=== PATIENT | male | born 1995 | race Caucasian/White ===

== ENCOUNTER 2018-05-06 20:30 | Inpatient (IN) ==
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
[2018-05-07] MEDS ORDERED: Aluminum/Magnesium/Simethacone Susp 30 ML UDC PO PRN (09:09)
[2018-05-07] MEDS ORDERED: Bisacodyl 10 MG Supp RECTAL PRN (09:09)
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
[2018-05-07] MEDS: Senna/Docusate Sodium 8.6/50 MG Tablet PO SCH (21:21)
[2018-05-07] MEDS: Methocarbamol 500 MG Tablet PO PRN (23:39)
[2018-05-08 07:39] LABS: Calcium 8.3 mg/dL (8.5-10.1); Carbon Dioxide 30.3 meq/L (21.0-32.0); Potassium 3.7 meq/L (3.5-5.1)
[2018-05-08 07:43] LABS: Chol/HDL Ratio 4.04 Ratio; HDL Cholesterol 31.9 mg/dL (40.0-60.0)
[2018-05-08] MEDS: Senna/Docusate Sodium 8.6/50 MG Tablet PO SCH ×2 (09:22→21:19)
[2018-05-08 09:41] LABS: Hemoglobin A1c 5.1 % (4.3-6.0)
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
[2018-05-08] MEDS: Methocarbamol 500 MG Tablet PO PRN (21:19)
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
[2018-05-09] MEDS: Senna/Docusate Sodium 8.6/50 MG Tablet PO SCH ×2 (09:41→21:03)
[2018-05-10] MEDS: Senna/Docusate Sodium 8.6/50 MG Tablet PO SCH ×2 (09:01→21:29)
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
[2018-05-11] MEDS: Senna/Docusate Sodium 8.6/50 MG Tablet PO SCH ×2 (09:30→20:59)
--- NOTE | 2018-05-11 15:00 | P.PNIM ---
Subjective Interval history: Follow up on patient with scrotal rash. Patient seen and examined. Patient is concerned that he is going to with an STD. He complains of continued burning rash in the inner side of his left leg close to his scrotum. When asked if it is getting worse, he says "it has the potential to". Patient denies any penile discharge or drainage but does complain of dysuria. He denies any fever or chills. Denies any cough, chest pain or dyspnea. Physical Exam Vital signs: Last Vital Signs Temp 97.9 F 05/11/18 05:15 Pulse 53 L 05/11/18 05:15 Resp 17 05/11/18 05:15 BP 102/53 L 05/11/18 05:15 Pulse Ox 96 05/11/18 05:15 Intake & Output 05/09/18 05/10/18 05/11/18 05/12/18 06:59 06:59 06:59 06:59 Intake Total 480 / 480 1080 / 1080 Balance 480 / 480 1080 / 1080 Narrative: GENERAL: Well-nourished well-developed young male patient, INAD. Awake and alert. SKIN: Warm and dry. No generalized rash. HEENT: Atraumatic. Normocephalic. Pupils equal and round. No scleral icterus. No injection or drainage. No nasal bleeding or discharge. Mucous membranes pink and moist. NECK: Trachea midline. CARDIOVASCULAR: Regular rate and rhythm. RESPIRATORY: No accessory muscle use. Clear to auscultation. Breath sounds equal bilaterally. GASTROINTESTINAL: Abdomen soft, non-tender, nondistended. Normoactive bowel sounds MUSCULOSKELETAL: Extremities without clubbing, cyanosis, or edema. No obvious deformities. NEUROLOGICAL: Awake and alert to person place. No obvious cranial nerve deficits. Motor function appears grossly intact. Normal speech. : Examination of the scrotum shows no significant swelling or erythema, lateral to the lower posterior area showed skin irritation with redness surrounding a hair follicle. No active drainage seen. Results Labs CBC & Chem 7: 05/08/18 06:10 Assessment and Plan (1) Unspecified psychosis: Code(s): F29 - Unspecified psychosis not due to a substance or known physiological condition Status: Acute Plan 22-year-old male admitted with acute psychosis: Acute psychosis UDs unremarkable -Management per psychiatric team Suspected folliculitis -Continue use with Bactroban to the area twice daily times 7 days -Monitor Dysuria Concern for sexually transmitted disease -Obtain UA -Check for chlamydia/gonorrhea DVT prophylaxis -Patient is ambulatory Progress Note: Quality VTE Deep Vein Thrombosis/Pulmonary Embolism Present on Admission: No _ (1) Unspecified psychosis Qualifiers: Psychosis type: Schizoaffective disorder type: Schizophrenia type:
[2018-05-11 17:15] LABS: Amorphous Sediment,Urine Occasional /hpf; Bilirubin,Urine Negative (Negative); Clarity,Urine Cloudy (Clear); Color,Urine Yellow (Yellw/Straw); Glucose,Urine (UA) Negative (Negative); Leukocyte Esterase,Urine Negative (Negative); Mucus,Urine Few /lpf (Occasional); Nitrite,Urine Negative (Negative)
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
[2018-05-12] MEDS: Senna/Docusate Sodium 8.6/50 MG Tablet PO SCH ×2 (08:14→22:07)
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
[2018-05-12 16:45] VITALS: RESP 18
[2018-05-12 18:40] LABS: Hepatitis A IgM Antibody Nonreactive (Nonreactive); Hepatitits B Surface Antigen Nonreactive (Nonreactive)
[2018-05-13] MEDS: Senna/Docusate Sodium 8.6/50 MG Tablet PO SCH ×2 (08:41→20:31)
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
[2018-05-14 06:09] VITALS: BP 118/68; PULSE 64; TEMP 97.8; O2SAT 98
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
[2018-05-14] MEDS: Senna/Docusate Sodium 8.6/50 MG Tablet PO SCH (09:17)
== END 2018-05-14 00:05 | disposition home or self-care (01) | DRG 885 ==
LOC: NEPJ 20:30 → NEDA 05-07 09:15 → H260 05-07 11:50
PROVIDERS: ADMIT Psychiatry & Neurology Child & Adolescent Psychiatry; ATTEND Psychiatry & Neurology Child & Adolescent Psychiatry